=== PATIENT | male | born 1935 | race Caucasian/White ===

== ENCOUNTER 2022-11-09 01:57 | Emergency (ER) | payer MEDICARE, OTHER ==
[2022-11-09] MEDS ORDERED: Naloxone 0.4 MG/ML SDV IVPUSH PRN (02:52)
[2022-11-09] MEDS ORDERED: fentaNYL 50 MCG/ML SDV IVPUSH ONE (02:52)
[2022-11-09] MEDS ORDERED: Take Home: Acetaminophen/HYDROcodone 325-5 MG, 5 Tab Pack PO ONE (04:19)
== END 2022-11-09 04:49 | disposition home or self-care (01) ==
LOC: VM.ED 01:57
DX: S32.512A Fracture of superior rim of left pubis, initial encounter for closed fracture (principal); S41.112A Laceration without foreign body of left upper arm, initial encounter; J44.9 Chronic obstructive pulmonary disease, unspecified; K21.9 Gastro-esophageal reflux disease without esophagitis; I11.0 Hypertensive heart disease with heart failure; I50.9 Heart failure, unspecified; E03.9 Hypothyroidism, unspecified; E11.9 Type 2 diabetes mellitus without complications; Z88.1 Allergy status to other antibiotic agents; Z79.899 Other long term (current) drug therapy; W18.39XA Other fall on same level, initial encounter
CPT/HCPCS: 96374; 99283-25; 99284; J3010